=== PATIENT | male | born 1955 | race Caucasian/White ===

== ENCOUNTER 2018-06-12 12:30 | Emergency (ER) | payer MEDICAID ==
--- NOTE | 2018-06-12 13:17 | EDM.PDOC ---
ED HPI GENERAL MEDICAL PROBLEM - General Chief Complaint: Abdominal Pain Stated Complaint: CHEST PAIN Time Seen by Provider: 06/12/18 13:15 Source of Information: Reports: Patient History Limitations: Reports: No Limitations - History of Present Illness INITIAL COMMENTS - FREE TEXT/NARRATIVE: pt had very acute onset of abdomanal pain. He did not vomit. He had normal stools yesterday. Onset: Today, Sudden Duration: Hour(s): Location: Reports: Abdomen Associated Symptoms: Reports: No Other Symptoms Abdomen Pain Score (Numeric/FACES): 3 - Related Data Allergies Allergy/AdvReac Type Severity Reaction Status Date / Time No Known Allergies Allergy Verified 06/12/18 13:06 Home Meds: Home Meds Gemfibrozil [Lopid] 600 mg PO BIDAC 06/12/18 [History] Losartan [Cozaar] 25 mg PO DAILY 06/12/18 [History] Lovastatin 20 mg PO 06/12/18 [History] glipiZIDE [Glipizide ER] 2.5 mg PO 06/12/18 [History] Past Medical History Cardiovascular History: Reports: High Cholesterol, Hypertension Endocrine/Metabolic History: Reports: Diabetes, Type II, Obesity/BMI 30+ Oncologic (Cancer) History: Reports: Basal Cell Carcinoma - Infectious Disease History Infectious Disease History: Reports: Chicken Pox - Past Surgical History GI Surgical History: Reports: Appendectomy Social & Family History - Tobacco Use Smoking Status *Q: Former Smoker Used Tobacco, but Quit: Yes Month/Year Tobacco Last Used: 1979 - Caffeine Use Caffeine Use: Reports: Coffee - Alcohol Use Days Per Week of Alcohol Use: 7 Number of Drinks Per Day: 7 Total Drinks Per Week: 49 - Recreational Drug Use Recreational Drug Use: No ED ROS GENERAL - Review of Systems Review Of Systems: See Below Constitutional: Reports: No Symptoms HEENT: Reports: No Symptoms Respiratory: Reports: No Symptoms Cardiovascular: Reports: No Symptoms Endocrine: Reports: No Symptoms GI/Abdominal: Reports: Abdominal Pain, Other (pt had a acute onset of abdomanal pain. ) : Reports: No Symptoms Musculoskeletal: Reports: No Symptoms ED EXAM, GI/ABD - Physical Exam Exam: See Below Text/Narrative:: pt had 3 hours of very severe abdomanal pain. When he got to the hospital he was extremely unconmfortable. While he was giving the history his pain went away and he was pretty much pain free. He had a flat and upright of the abdoman which looked like constipation Exam Limited By: No Limitations General Appearance: Alert, Anxious, Mild Distress Ears: Normal External Exam Nose: Normal Inspection Throat/Mouth: Normal Inspection Head: Atraumatic Neck: Normal Inspection Respiratory/Chest: No Respiratory Distress Cardiovascular: Regular Rate, Rhythm GI/Abdominal Exam: Other ( mild tenderness present. His pain was very stable. r) (Male) Exam: Deferred Rectal (Males) Exam: Deferred Back Exam: Normal Inspection Extremities: Normal Inspection Neurological: Alert, Oriented, Normal Cognition Course - Vital Signs Last Recorded V/S: Last Vital Signs Temp 36.8 C 06/12/18 14:59 Pulse 101 H 06/12/18 14:59 Resp 16 06/12/18 14:59 BP 133/71 06/12/18 14:59 Pulse Ox 94 L 06/12/18 14:59 - Orders/Labs/Meds Orders: Active Orders 24 hr Category Date Time Status Iopamidol [Isovue-300 (61%)] Med 06/12/18 16:15 Active 150 ml IV . DIRECTED Sodium Chloride 0.9% [Normal Saline] 1,000 ml Med 06/12/18 15:45 Active IV ASDIRECTED Sodium Chloride 0.9% [Saline Flush] Med 06/12/18 16:10 Active 10 ml FLUSH ONETIME PRN Medication Orders Sodium Chloride (Normal Saline) 1,000 mls @ 999 mls/hr IV ASDIRECTED SPENCER Iopamidol (Isovue-300 (61%)) 150 ml IV . DIRECTED SPENCER Last Admin: 06/12/18 16:32 Dose: 150 ml Sodium Chloride (Saline Flush) 10 ml FLUSH ONETIME PRN PRN Reason: PER RADIOLOGY PROTOCOL Last Admin: 06/12/18 16:31 Dose: 10 ml Labs: Laboratory Tests 06/12/18 06/12/18 06/12/18 Range/Units 13:23 13:23 13:23 WBC 4.4 L (4.5-11.0) K/uL RBC 3.96 L (4.30-5.90) M/uL Hgb 14.1 (12.0-15.0) g/dL Hct 39.3 L (40.0-54.0) % MCV 99 H (80-98) fL MCH 36 H (27-31) pg MCHC 36 (32-36) % Plt Count 178 (150-400) K/uL Neut % (Auto) 93 H (36-66) % Lymph % (Auto) 6 L (24-44) % [place] % (Auto) 1 L (2-6) % Eos % (Auto) 1 L (2-4) % Baso % (Auto) 0 (0-1) % Sodium 138 L (140-148) mmol/L Potassium 4.0 (3.6-5.2) mmol/L Chloride 102 (100-108) mmol/L Carbon Dioxide 23 (21-32) mmol/L Anion Gap 17.0 H (5.0-14.0) mmol/L BUN 18 (7-18) mg/dL Creatinine 1.1 (0.8-1.3) mg/dL Est Cr Clr Drug Dosing 72.26 mL/min Estimated GFR (MDRD) > 60 (>60) Glucose 195 H (74-106) mg/dL Calcium 9.1 (8.5-10.1) mg/dL Total Bilirubin 2.2 H (0.2-1.0) mg/dL AST 222 H (15-37) U/L ALT 118 H (12-78) U/L Alkaline Phosphatase 95 (46-116) U/L C-Reactive Protein 0.43 H (0.0-0.3) mg/dL Total Protein 6.6 (6.4-8.2) g/dL Albumin 3.6 (3.4-5.0) g/dL Globulin 3.0 (2.3-3.5) g/dL Albumin/Globulin Ratio 1.2 (1.2-2.2) Lipase 255 (73-393) U/L Urine Color Urine Appearance Urine pH (4.5-8.0) Ur Specific [place] (1.008-1.030) Urine Protein (NEGATIVE) mg/dL Urine Glucose (UA) (NEGATIVE) mg/dL Urine Ketones (NEGATIVE) mg/dL Urine Occult Blood (NEGATIVE) Urine Nitrite (NEGAITVE) Urine Bilirubin (NEGATIVE) Urine Urobilinogen (NORMAL) mg/dL Ur Leukocyte Esterase (NEGATIVE) Urine RBC (0-5) Urine WBC (0-5) Ur Epithelial Cells Amorphous Sediment Urine Bacteria Urine Mucus 06/12/18 Range/Units 13:56 WBC (4.5-11.0) K/uL RBC (4.30-5.90) M/uL Hgb (12.0-15.0) g/dL Hct (40.0-54.0) % MCV (80-98) fL MCH (27-31) pg MCHC (32-36) % Plt Count (150-400) K/uL Neut % (Auto) (36-66) % Lymph % (Auto) (24-44) % [place] % (Auto) (2-6) % Eos % (Auto) (2-4) % Baso % (Auto) (0-1) % Sodium (140-148) mmol/L Potassium (3.6-5.2) mmol/L Chloride (100-108) mmol/L Carbon Dioxide (21-32) mmol/L Anion Gap (5.0-14.0) mmol/L BUN (7-18) mg/dL Creatinine (0.8-1.3) mg/dL Est Cr Clr Drug Dosing mL/min Estimated GFR (MDRD) (>60) Glucose (74-106) mg/dL Calcium (8.5-10.1) mg/dL Total Bilirubin (0.2-1.0) mg/dL AST (15-37) U/L ALT (12-78) U/L Alkaline Phosphatase (46-116) U/L C-Reactive Protein (0.0-0.3) mg/dL Total Protein (6.4-8.2) g/dL Albumin (3.4-5.0) g/dL Globulin (2.3-3.5) g/dL Albumin/Globulin Ratio (1.2-2.2) Lipase (73-393) U/L Urine Color Yellow Urine Appearance Clear Urine pH 5.0 (4.5-8.0) Ur Specific [place] 1.025 (1.008-1.030) Urine Protein Negative (NEGATIVE) mg/dL Urine Glucose (UA) Normal (NEGATIVE) mg/dL Urine Ketones Negative (NEGATIVE) mg/dL Urine Occult Blood Negative (NEGATIVE) Urine Nitrite Negative (NEGAITVE) Urine Bilirubin Negative (NEGATIVE) Urine Urobilinogen 1 (NORMAL) mg/dL Ur Leukocyte Esterase Negative (NEGATIVE) Urine RBC 0-5 (0-5) Urine WBC 0-5 (0-5) Ur Epithelial Cells Few Amorphous Sediment Not seen Urine Bacteria Moderate Urine Mucus Numerous Meds: Medications Generic Name Dose Route Start Last Admin Trade Name Freq PRN Reason Stop Dose Admin Sodium Chloride 1,000 mls @ 999 mls/hr 06/12/18 15:45 Normal Saline IV ASDIRECTED SPENCER Iopamidol 150 ml 06/12/18 16:15 06/12/18 16:32 Isovue-300 (61%) IV 150 ml . DIRECTED SPENCER Administration Sodium Chloride 10 ml 06/12/18 16:10 06/12/18 16:31 Saline Flush FLUSH 10 ml ONETIME PRN Administration PER RADIOLOGY PROTOCOL Discontinued Medications Generic Name Dose Route Start Last Admin Trade Name Freq PRN Reason Stop Dose Admin Sodium Chloride 85 mls @ 3 mls/sec 06/12/18 16:10 06/12/18 16:31 Normal Saline IV 06/12/18 16:11 3 mls/sec ONETIME ONE Administration - Re-Assessments/Exams Free Text/Narrative Re-Assessment/Exam: 06/12/18 18:04 flat and upright showed constipatiopn. His liver enzymes were up and a US of the abdoman was done which showed a normal GB. He had a cat scan of the abdomanm was done which showed small stones in his kidneys. I feel like the pt passed a small stone which caused the severe pain Departure - Departure Time of Disposition: 17:56 Disposition: Home, Self-Care 01 Condition: Fair Clinical Impression: Abdominal pain, Calcium renal calculus, Elevated liver enzymes - Discharge Information Instructions: Abdominal Pain, Adult, [id number] Referrals: PCP,None [Primary Care Provider] - Forms: ED Department Discharge Care Plan Goals: push fluids, mag citrate send home with the pt and he should drink this to clean push the stool through. rtc if the pain should get worse. Pt may have passed a small stone which caused the severe pain. He does have alot of stool present. - My Orders Last 24 Hours: My Active Orders 06/12/18 15:45 Sodium Chloride 0.9% [Normal Saline] 1,000 ml IV ASDIRECTED 06/12/18 16:10 Sodium Chloride 0.9% [Saline Flush] 10 ml FLUSH ONETIME PRN 06/12/18 16:15 Iopamidol [Isovue-300 (61%)] 150 ml IV . DIRECTED - Assessment/Plan Last 24 Hours: My Active Orders 06/12/18 15:45 Sodium Chloride 0.9% [Normal Saline] 1,000 ml IV ASDIRECTED 06/12/18 16:10 Sodium Chloride 0.9% [Saline Flush] 10 ml FLUSH ONETIME PRN 06/12/18 16:15 Iopamidol [Isovue-300 (61%)] 150 ml IV . DIRECTED
--- NOTE | 2018-06-12 13:54 | CRLCR ---
INDICATION: Pain TECHNIQUE: Abdomen series with chest one-view COMPARISON: None FINDINGS: Cardiovascular and mediastinum: Heart size and vasculature are normal in caliber and appearance. Mediastinum is within normal limits. Lungs and pleural space: Lungs are clear. No sign of infiltrate or mass. No sign of pleural effusion. No pneumothorax. Bones and soft tissues: No significant findings. Abdomen: Nonobstructive bowel gas pattern. No gross free air. Colonic fecal retention involving the ascending and transverse colon. IMPRESSION: Colonic fecal retention involving the ascending and transverse colon, otherwise unremarkable chest and abdomen. Dictated by Jose Fall MD @ Jun 12 2018 1:46PM Signed by Dr. Jose Fall @ Jun 12 2018 1:52PM
[2018-06-12] MEDS ORDERED: Sodium Chloride 0.9% 1,000 ML IV SCH (15:45)
--- NOTE | 2018-06-12 16:00 | CRLUS ---
INDICATION: Severe abdominal pain. COMPARISON: None available. TECHNIQUE: Ultrasound examination of the right upper quadrant was performed. FINDINGS: There is normal appearance of the gallbladder, with no sign of cholelithiasis or acute cholecystitis. There is no sign of gallbladder wall thickening or pericholecystic fluid. The common bile duct is normal in caliber at 5 mm. The pancreatic head and body were examined, and these are normal in appearance. The abdominal aorta and visualized portions of the inferior vena cava are normal in appearance. The liver shows no sign of mass or contour abnormality, and there is no sign of ascites. There is diffusely increased hepatic echogenicity consistent with fatty infiltration, with an area of normal echogenicity adjacent to the gallbladder measuring 3.4 x 2.2 x 3.4 centimeters consistent with focal sparing. The right kidney is unremarkable. IMPRESSION: No sign of cholelithiasis or acute cholecystitis. No sign of biliary ductal dilatation. Fatty infiltration of the liver with focal sparing adjacent to the gallbladder. Dictated by Jose Foster MD @ Jun 12 2018 3:57PM Signed by Dr. Jose Foster @ Jun 12 2018 3:59PM
[2018-06-12] MEDS ORDERED: Sodium Chloride 0.9% 10 ML Syringe FLUSH PRN (16:10)
[2018-06-12] MEDS ORDERED: Iopamidol 612 MG/ML 150 ML Bottle IV SCH (16:15)
--- NOTE | 2018-06-12 17:46 | CRLCT ---
INDICATION: Generalized abdominal pain. COMPARISON: Ultrasound of the right upper quadrant from earlier today. TECHNIQUE: CT examination of the abdomen and pelvis was performed with the uneventful intravenous administration of 100 cc of Omnipaque 350 while 3 mm thick axial sections were obtained from the lung bases through the pubic symphysis. Oral contrast was not administered. Please note that all CT scans at this facility use dose modulation, iterative reconstruction, and/or weight-based dosing when appropriate to reduce radiation dose to as low as reasonably achievable. FINDINGS: In the abdomen, the liver is low in density, representing fatty infiltration. There is no sign of solid mass. There is a 9 millimeter cyst in the anterior subcapsular medial segment of the left lobe of the liver, segment 4A. The area of sparing of focal fatty infiltration in the liver adjacent to the gallbladder cannot definitely be identified, but there is no sign of any mass in this region. The liver is mildly enlarged, measuring 21.7 centimeters in length. The spleen, pancreas and adrenals are normal in appearance. There is a 3 millimeter nonobstructive calculus in the interpolar region of the right kidney. There is a 2 millimeter nonobstructive calculus in the lower pole of the left kidney. The kidneys are otherwise normal in appearance. The gallbladder is normal in appearance. The abdominal aorta is normal in caliber with no sign of dilatation. There is no sign of retroperitoneal mass or adenopathy. The stomach and loops of small bowel in the abdomen are normal in appearance. There is mild diverticulosis of the colon throughout the abdomen, with no sign of diverticulitis. In the pelvis, the appendix is normal in appearance with no sign of inflammatory process. There is mild sigmoid diverticulosis without evidence of diverticulitis. The loops of small bowel and colon in the pelvis are otherwise normal in appearance. The prostate is normal in appearance. The urinary bladder is normal in appearance. There is no sign of pelvic or inguinal mass or adenopathy. The lung bases are clear. There is minimal posterior subluxation of L5 on S1 with moderate L5-S1 disc degenerative disease. The rest of the osseous structures are normal in appearance. IMPRESSION: Nothing seen that would explain the patient`s generalized abdominal pain. No sign of any inflammatory reaction involving the loops of bowel. CT of the abdomen shows fatty infiltration of the liver which is mildly enlarged. No sign of any hepatic mass Small nonobstructive bilateral renal calculi as described above. No sign of any ureteral calculi. Mild diverticulosis of the colon in the abdomen without diverticulitis. CT of the pelvis shows mild sigmoid diverticulosis with no sign of diverticulitis. Please note that all CT scans at this facility use dose modulation, iterative reconstruction, and/or weight-based dosing when appropriate to reduce radiation dose to as low as reasonably achievable. Dictated by Jose Foster MD @ Jun 12 2018 5:30PM Signed by Dr. Jose Foster @ Jun 12 2018 5:44PM
== END 2018-06-12 18:23 | disposition home or self-care (01) ==
LOC: JP.ED 12:30
DX: N20.0 Calculus of kidney (principal); K59.00 Constipation, unspecified; R94.5 Abnormal results of liver function studies; I10 Essential (primary) hypertension; E78.00 Pure hypercholesterolemia, unspecified; E11.9 Type 2 diabetes mellitus without complications; Z87.891 Personal history of nicotine dependence; Z85.828 Personal history of other malignant neoplasm of skin; Z79.84 Long term (current) use of oral hypoglycemic drugs; Z79.899 Other long term (current) drug therapy
CPT/HCPCS: 36415; 74022; 74177; 76705; 80053; 81001; 83690; 85025; 86140; 99284; J7030